=== PATIENT | male | born 1980 | race Caucasian/White ===

== ENCOUNTER → 2018-02-19 | Outpatient (REF) | payer OTHER | LOC: M LAB REF 13:22 | DX: L02.416 Cutaneous abscess of left lower limb (principal) ==

== ENCOUNTER 2019-03-22 01:24 | Emergency (ER) | payer MEDICAID, OTHER ==
[~2019-03-22] VITALS: Ht 175.3 cm; Wt 83.6 kg
[2019-03-22 01:29] VITALS: BP 157/90
[2019-03-22] MEDS ORDERED: HYDR1CAP25 PO (01:45)
[2019-03-22] MEDS ORDERED: BUPR150T3 PO (01:45)
[2019-03-22] MEDS ORDERED: CLON-412 PO (01:45)
[2019-03-22] MEDS ORDERED: TRAZ150T90 PO (01:45)
[2019-03-22] MEDS ORDERED: TRIL1TAB PO (01:45)
== END 2019-03-22 02:34 | disposition home or self-care (01) ==
LOC: M ED 01:24
DX: F19.10 Other psychoactive substance abuse, uncomplicated (principal); Z79.899 Other long term (current) drug therapy

== ENCOUNTER 2020-05-16 13:01 | Emergency (ER) | payer MEDICAID ==
[~2020-05-16] VITALS: Ht 175.3 cm; Wt 81.8 kg
[~2020-05-16 13:01] MED LIST: BUPR150T3 PO; CLON-412 PO; HYDR1CAP25 PO; TRAZ150T90 PO; TRIL1TAB PO
[2020-05-16] MEDS ORDERED: LORazepam 2 MG/ML VIAL IV STA (13:22)
[2020-05-16] MEDS ORDERED: LORazepam 2 MG/ML VIAL As Ordered ONE (13:24)
[2020-05-16 14:01] LABS: BASO # 0.1 10^3/uL (0.0-0.2); BASO % 0.5 % (0.0-1.0); EOS # 0.2 10^3/uL (0.0-0.5); EOS % 1.6 % (0.0-3.0); HEMATOCRIT 43.7 % (42.0-52.0); HEMOGLOBIN 15.1 g/dl (13.5-17.5); LYMPH # 2.8 10^3/uL (1.5-5.0); LYMPH % 19.3 % (24.0-44.0); MEAN CORPUSCULAR HEMOGLOBIN 29.6 pg (27.0-33.0); MEAN CORPUSCULAR HGB CONC 34.6 g/dl (32.0-36.5); MEAN CORPUSCULAR VOLUME 85.7 fl (80.0-96.0); MONO # 1.6 10^3/uL (0.0-0.8); NEUTROPHILS # 9.8 10^3/uL (1.5-8.5); NEUTROPHILS % 67.2 % (36.0-66.0); PLATELET COUNT, AUTOMATED 314 10^3/uL (150-450); WHITE BLOOD COUNT 14.7 10^3/uL (4.0-10.0)
[2020-05-16 14:22] LABS: ALBUMIN 4.4 GM/DL (3.2-5.2); BILIRUBIN,TOTAL 1.1 MG/DL (0.2-1.0); C REACTIVE PROTEIN QUANTITATIV 1.2 MG/DL (0.00-0.30); CALCIUM LEVEL 9.4 MG/DL (8.5-10.1); CREATININE FOR GFR 1.45 MG/DL (0.70-1.30); GLOMERULAR FILTRATION RATE 57.1 (>60); POTASSIUM SERUM 3.5 MEQ/L (3.5-5.1); TOTAL PROTEIN 7.7 GM/DL (6.4-8.2)
[2020-05-16 14:26] LABS: ERYTHROCYTE SEDIMENTATION RATE 9 mm/hr (0-15)
[2020-05-16 14:40] VITALS: BP 125/77
== END 2020-05-16 14:30 | disposition left against medical advice (07) ==
LOC: EDBD 13:01 → M ED 13:01
DX: Z53.20 Procedure and treatment not carried out because of patient's decision for unspecified reasons (principal); F19.10 Other psychoactive substance abuse, uncomplicated
CPT/HCPCS: 80053; 85025; 85652; 86140; 96374; 99283; J2060

== ENCOUNTER 2020-10-20 00:38 | Emergency (ER) | payer MEDICAID ==
[~2020-10-20] VITALS: Ht 172.7 cm; Wt 75.5 kg
[~2020-10-20 00:38] MED LIST changes: -BUPR150T3 PO; +BUPR150T4 PO
[2020-10-20] MEDS ORDERED: LORazepam 2 MG/ML VIAL IV STA (00:48)
[2020-10-20] MEDS ORDERED: NS 1,000 ML IV ONE ×2 (01:00→02:00)
[2020-10-20 01:06] LABS: BASO # 0.1 10^3/uL (0.0-0.2); BASO % 0.7 % (0.0-1.0); EOS # 0.5 10^3/uL (0.0-0.5); EOS % 3.6 % (0.0-3.0); HEMATOCRIT 46.9 % (42.0-52.0); HEMOGLOBIN 14.9 g/dl (13.5-17.5); LYMPH # 5.6 10^3/uL (1.5-5.0); LYMPH % 37.6 % (24.0-44.0); MEAN CORPUSCULAR HEMOGLOBIN 28.1 pg (27.0-33.0); MEAN CORPUSCULAR HGB CONC 31.8 g/dl (32.0-36.5); MEAN CORPUSCULAR VOLUME 88.3 fl (80.0-96.0); MONO # 1.1 10^3/uL (0.0-0.8); MONO % 7.3 % (0.0-5.0); NEUTROPHILS # 7.5 10^3/uL (1.5-8.5); NEUTROPHILS % 50.5 % (36.0-66.0); PLATELET COUNT, AUTOMATED 372 10^3/uL (150-450); RED BLOOD COUNT 5.31 10^6/uL (4.30-6.10)
[2020-10-20 01:12] LABS: WHITE BLOOD COUNT 14.9 10^3/uL (4.0-10.0)
[2020-10-20 01:43] LABS: ACETAMINOPHEN LEVEL < 2.0 UG/ML (10.0-30.0); ALBUMIN 4.2 GM/DL (3.2-5.2); ALT/SGPT 25 U/L (12-78); BILIRUBIN,DIRECT 0.1 MG/DL (0.0-0.2); BILIRUBIN,TOTAL 0.4 MG/DL (0.2-1.0); BLOOD UREA NITROGEN 24 MG/DL (7-18); CALCIUM LEVEL 9.3 MG/DL (8.5-10.1); CARBON DIOXIDE LEVEL 22 MEQ/L (21-32); CHLORIDE LEVEL 107 MEQ/L (98-107); CPK CREATINE PHOSPHOKINASE 255 U/L (39-308); CREATININE FOR GFR 1.42 MG/DL (0.70-1.30); ETHYL ALCOHOL (ETHANOL) < 0.003 % (0.000-0.010); GLOMERULAR FILTRATION RATE 58.2 (>60); GLUCOSE, FASTING 113 MG/DL (70-100); POTASSIUM SERUM 3.8 MEQ/L (3.5-5.1); SALICYLATE LEVEL < 1.7 MG/DL (5.0-30.0); SODIUM LEVEL 143 MEQ/L (136-145); TOTAL PROTEIN 7.7 GM/DL (6.4-8.2)
--- NOTE | 2020-10-20 05:39 | ECGEPIP ---
[facility] - ED Test Date: 2020-10-20 Pat Name: SUE TIERNEY Department: Room: - Gender: Male Director Of Training: ankur : 1980 Requested By: Franck Shaver Order Number: [id number] Reading MD: Ant Barrios Measurements Intervals [place] Rate: 122 P: 66 NM: 129 QRS: 53 QRSD: 89 T: 40 QT: 312 QTc: 445 Interpretive Statements SINUS TACHYCARDIA NO PRIORS FOR COMPARISON Electronically Signed on 10-20-2020 5:38:53 EST by Ant Barrios
[2020-10-20 08:24] VITALS: BP 120/78
== END 2020-10-20 08:41 | disposition home or self-care (01) ==
LOC: M ED 00:38
DX: F16.10 Hallucinogen abuse, uncomplicated (principal); F17.200 Nicotine dependence, unspecified, uncomplicated; F41.9 Anxiety disorder, unspecified; F31.9 Bipolar disorder, unspecified
CPT/HCPCS: 80048; 80076; 80143; 82077; 82550; 83605; 84443; 85025; 93005; 93041; 94760; 96361; 96374; 99285; J2060

== ENCOUNTER → 2022-11-15 | Outpatient (REF) | payer OTHER ==
[~2022-11-15] MED LIST changes: +BUPR150T12 PO; -BUPR150T4 PO
[2022-11-15 14:49] LABS: GC DNA AMPLIFICATION NEGATIVE (NEGATIVE)
== END ==
LOC: M LAB REF 12:13
PROVIDERS: ATTEND Surgery
DX: A64 Unspecified sexually transmitted disease (principal)

== ENCOUNTER → 2022-12-20 | Outpatient (CLI) | payer OTHER ==
[2022-12-20 17:07] LABS: HEMATOCRIT 38.7 % (42.0-52.0); HEMOGLOBIN 12.9 g/dl (13.5-17.5); MEAN CORPUSCULAR HEMOGLOBIN 29.1 pg (27.0-33.0); MEAN CORPUSCULAR HGB CONC 33.3 g/dl (32.0-36.5); MEAN CORPUSCULAR VOLUME 87.2 fl (80.0-96.0); PLATELET COUNT, AUTOMATED 287 10^3/uL (150-450); RED BLOOD COUNT 4.44 10^6/uL (4.30-6.10); WHITE BLOOD COUNT 7.8 10^3/uL (4.0-10.0)
[2022-12-20 17:36] LABS: ALBUMIN 3.8 G/DL (3.2-5.2); ALKALINE PHOSPHATASE 54 U/L (46-116); ALT/SGPT 24 U/L (7.0-40); AST/SGOT 19 U/L (<34); BILIRUBIN,TOTAL 0.2 MG/DL (0.3-1.2); BLOOD UREA NITROGEN 20 MG/DL (9-23); CALCIUM LEVEL 9.1 MG/DL (8.5-10.1); CARBON DIOXIDE LEVEL 30 MMOL/L (20-31); CHLORIDE LEVEL 103 MMOL/L (98-107); CREATININE FOR GFR 0.96 MG/DL (0.70-1.30); GLOMERULAR FILTRATION RATE > 60.0 (>60); GLUCOSE, FASTING 85 MG/DL (60-100); POTASSIUM SERUM 4.2 MMOL/L (3.5-5.1); SODIUM LEVEL 141 MMOL/L (136-145); TOTAL PROTEIN 6.9 G/DL (5.7-8.2)
[2022-12-20 17:55] LABS: HEPATITIS B SURFACE ANTIGEN NEGATIVE (NEGATIVE)
[2022-12-20 18:07] LABS: HIV 1&2 SCREEN ATELLICA NEGATIVE (NEGATIVE)
[2022-12-20 18:26] LABS: HEPATITIS C VIRUS ABY INDEX 1.9 INDEX (<0.8)
== END ==
LOC: M WUC 14:32
PROVIDERS: ATTEND Family Medicine
DX: F11.20 Opioid dependence, uncomplicated (principal)